=== PATIENT | female | born 1955 | race Caucasian/White ===

== ENCOUNTER 2021-09-13 13:41 | Emergency (ER) | payer MEDICARE, OTHER ==
[~2021-09-13] VITALS: Ht 165.1 cm; Wt 67.1 kg
[2021-09-13] MEDS ORDERED: CIPRO500 MG PO (19:08)
[2021-09-13] MEDS ORDERED: DIFLUCAN200 MG PO (19:11)
== END 2021-09-13 20:35 | disposition home or self-care (01) ==
LOC: ED 13:41
DX: N39.0 Urinary tract infection, site not specified (principal); K80.20 Calculus of gallbladder without cholecystitis without obstruction; R19.7 Diarrhea, unspecified; E11.65 Type 2 diabetes mellitus with hyperglycemia; Z20.822 Contact with and (suspected) exposure to COVID-19; Z88.5 Allergy status to narcotic agent
CPT/HCPCS: 36415; 74177; 80053; 81001; 83735; 85025; 87088; 87502; 96361; 96375; 99284-25; C9803; J0696; J2405; J7040; Q9967; U0003